=== PATIENT | male | born 1975 | race Caucasian/White ===

== ENCOUNTER → 2016-07-25 | Outpatient (CLI) | payer OTHER ==
[~2016-07-25] MED LIST: AMOXICILLIN 8751 TAB PO; DIABETA 2.5MG2.5 MG PO; DIABETA1.25 MG PO; FLAGYL 375375 MG PO; GLUCOPHAGE1000 MG PO; KLOR-CON M2020 MEQ PO; LEVAQUIN 750MG750 M1 PO; NO HOME MEDICATIONS; NORCO 325 MG-7.1 TAB PO; PRINIVIL2.5 MG PO; PROTONIX 40MG T40 MG PO; SILVADENE CREAM1 TU TP
[2016-07-25 14:31] LABS: HEMATOCRIT 40.2 % (42.0-52.0); HEMOGLOBIN 12.7 g/dl (13.5-18.0)
[2016-07-25 14:42] LABS: CALCIUM 10.2 mg/dL (8.4-10.2); CREATININE, serum 0.81 mg/dL (0.66-1.25); POTASSIUM 4.4 mmol/L (3.4-5.0)
== END ==
LOC: COL.LAB 14:09
PROVIDERS: Surgery
DX: D64.89 Other specified anemias (principal); E87.6 Hypokalemia

== ENCOUNTER 2021-10-30 00:13 | Emergency (ER) | payer BC ==
[~2021-10-30] VITALS: Ht 190.5 cm; Wt 120.5 kg
[2021-10-30 00:45] LABS: BASO # 0.1 K/mm3 (0.0-0.2); BASO % 0.6 % (0.0-2.0); EOS # 0.3 K/mm3 (0.0-0.7); EOS % 2.7 % (0.0-4.0); GRAN # 6.2 K/mm3 (1.4-6.5); GRAN % 61.3 % (42.2-75.2); HEMATOCRIT 48.3 % (42.0-52.0); HEMOGLOBIN 16.9 g/dl (13.5-18.0); LYMPH # 2.7 K/mm3 (1.2-3.4); LYMPH % 26.5 % (20.0-51.0); MEAN CELL VOLUME 89 fl (80.0-100.0); MEAN CORPUSCULAR HEMOGLOBIN 31 pg (27-31); MEAN CORPUSCULAR HGB CONC 35 g/dl (33.0-37.0); MEAN PLATELET VOLUME 9.5 fl (7.4-10.4); MONO # 0.9 K/mm3 (0.1-0.6); MONO % 8.6 % (1.7-9.3); PLATELET COUNT 312 K/mm3 (130-400); RED BLOOD COUNT 5.42 M/mm3 (4.20-5.60); REDCELL DISTRIBUTION WIDTH-CV 13.1 % (11.5-14.5)
[2021-10-30 00:48] LABS: COLLECTION METHOD CLEAN CATCH
[2021-10-30 00:54] LABS: MUCOUS Present (NOT PRESENT); PH 5 (5-8); SQUAMOUS EPITHELIAL 0-2 /hpf (0-10); URINE APPEARANCE Hazy (CLEAR/HAZY); URINE BACTERIA None Seen /hpf (NONE SEEN); URINE BILIRUBIN Negative (NEGATIVE); URINE BLOOD Negative (NEGATIVE); URINE COLOR Yellow (YELLOW); URINE GLUCOSE 2+ (NEGATIVE); URINE KETONE 1+ (NEGATIVE); URINE LEUKOCYTE ESTERASE Negative (NEGATIVE); URINE NITRATE Negative (NEGATIVE); URINE PROTEIN(semi-quant) Negative (NEGATIVE); URINE RBC 0-2 /hpf (0-2); URINE UROBILINOGEN Negative (NEGATIVE)
[2021-10-30 01:04] LABS: ALANINE AMINOTRANSFERASE 38 U/L (0-55); ALBUMIN 4.1 gm/dL (3.5-5.0); ALKALINE PHOSPHATASE 78 U/L (40-150); ANION GAP 14 mmol/L (7-16); AST,SGOT 31 U/L (5-34); BILIRUBIN,TOTAL < 1.0 mg/dL (0.2-1.2); BLOOD UREA NITROGEN 17 mg/dL (9-21); CALCIUM 8.7 mg/dL (8.4-10.2); CARBON DIOXIDE 17 mmol/L (22-29); CHLORIDE 105 mmol/L (98-107); CREATININE, serum 1.18 mg/dL (0.72-1.25); GLUCOSE 224 mg/dL (70-99); POTASSIUM 4.8 mmol/L (3.5-4.5); SODIUM 136 mmol/L (136-145); TOTAL PROTEIN 7.7 gm/dL (6.2-8.1)
[2021-10-30 01:24] LABS: C-REACTIVE PROTEIN 0.25 mg/dL (0.00-0.50)
[2021-10-30] MEDS ORDERED: PERCOCET 325 MG1 TA2 PO (03:03)
[2021-10-30] MEDS ORDERED: ZOFRAN ODT4 MG PO (03:03)
[2021-10-30] MEDS ORDERED: FLOMAX 0.40.4 MG/CAP PO (03:03)
[2021-10-30 03:10] VITALS: BP 121/81; PULSE 76; TEMP 98.4
== END 2021-10-30 03:10 | disposition home or self-care (01) ==
LOC: COL.ER 00:13
PROVIDERS: Nurse Practitioner
DX: N13.2 Hydronephrosis with renal and ureteral calculous obstruction (principal); F17.210 Nicotine dependence, cigarettes, uncomplicated; Z93.3 Colostomy status
CPT/HCPCS: J1170; J1885; J2405; J7030; Q9967